=== PATIENT | female | born 1935 | race Two or more races ===

== ENCOUNTER 2019-06-22 12:23 | Emergency (ER) | payer OTHER ==
[2019-06-22 13:01] VITALS: BP 176/73; PULSE 71; TEMP 98.6; BMI 26.4
--- NOTE | 2019-06-22 14:39 | PDOC ---
History of Present Illness - General Chief Complaint: Injury Stated Complaint: SLIP AND FALL Time Seen by Provider: 06/22/19 14:09 History Source: Patient, Family Exam Limitations: Language Barrier (Gib[place], family who is taking care of her translating accurately) - History of Present Illness Initial Comments: 06/22/19 14:34 Holly Ferraro is an 83F with PMH osteoporosis, HTN, NIDDM presenting with witnessed mechanical fall to R side. Patient was walking at 10PM last night, tripped on street and had witnessed mechanical fall to R side. Patient and family who witnessed both deny head injury. Has some residual bruising on both forearms when she caught herself but does not complain of arm, leg or chest pain. No prodromal sx, no LOC/fever/ dizziness. Complains now of pain to her R abdomen from umbilicus to spine, has not taken any medications for it, constant. Denies gross hematuria or issues with urination. No N/V, C/D, chest pain, headache. Medications include metformin for NIDDM, losartan for HTN. Allergy to pencillin , gastric pain when taking high dose AKA, on daily 81mg. Past History - Past Medical History Allergies/Adverse Reactions: Allergies Allergy/AdvReac Type Severity Reaction Status Date / Time Penicillins AdvReac Verified 06/22/19 14:06 Home Medications: Ambulatory Orders Aspirin [Aspirin EC] 81 mg PO DAILY 06/22/19 Cholecalciferol (Vitamin D3) [Vitamin D-400] 400 unit PO DAILY 06/22/19 Losartan Potassium [Cozaar -] 50 mg PO DAILY 06/22/19 Metformin HCl [Glucophage] 1,000 mg PO DAILY 06/22/19 Metformin HCl [Glucophage] 500 mg PO HS 06/22/19 COPD: No Diabetes: Yes HTN: Yes Other medical history: arthritis osteoperosis, bells palsy - Suicide/Smoking/Psychosocial Hx Smoking History: Never smoked Have you smoked in the past 12 months: No Information on smoking cessation initiated: No Hx Alcohol Use: No Drug/Substance Use Hx: No Review of Systems - Review of Systems Able to Perform ROS?: Yes Is the patient limited [place] proficient: No Constitutional: No: Chills, Fever, Weakness HEENTM: No: Symptoms Reported Respiratory: No: Symptoms reported Cardiac (ROS): No: Symptoms Reported ABD/GI: No: Constipated, Diarrhea, Nausea, Vomiting : No: Burning, Dysuria, Discharge, Hematuria Integumentary: Yes: Bruising (bilateral forearms). No: Pallor Neurological: No: Symptoms reported Endocrine: No: Symptoms Reported Hematologic/Lymphatic: No: Symptoms Reported All Other Systems: Reviewed and Negative *Physical Exam - Vital Signs Last Vital Signs Temp Pulse Resp BP Pulse Ox 98.6 F 71 18 176/73 H 95 06/22/19 12:57 06/22/19 12:57 06/22/19 12:57 06/22/19 12:57 06/22/19 12:57 - Physical Exam General Appearance: Yes: Nourished, Appropriately Dressed. No: Apparent Distress HEENT: positive: EOMI, Normal Voice, Symmetrical. negative: Scleral Icterus (R) , Scleral Icterus (L) Neck: positive: Trachea midline, Supple. negative: Lymphadenopathy (R), Lymphadenopathy (L) Respiratory/Chest: positive: Lungs Clear, Normal Breath Sounds. negative: Respiratory Distress, Crackles, Rales, Rhonchi Cardiovascular: positive: Regular Rhythm, Regular Rate. negative: Edema, Murmur Gastrointestinal/Abdominal: positive: Normal Bowel Sounds, Tender (tender to palpation RUQ and RLQ, R paraspinal tenderness, no external bleeding or ecchymosis, no signs of rib fx), Flat, Soft. negative: Organomegaly Musculoskeletal: positive: Other (TTP R flank and paraspinal). negative: Vertebral Tenderness Extremity: positive: Normal Capillary Refill, Normal Inspection, Normal Range of Motion, Pelvis Stable, Other (RLE pain to abdomen on straight leg raise. All extremities: sensation intact to LT, pulses present). negative: Tender Integumentary: positive: Normal Color, Dry, Warm, Bruising (bilateral forearms, non-tender). negative: Jaundice, Pale, Cold, Diaphoresis Neurologic: positive: Fully Oriented, Alert, Normal Mood/Affect, Normal Response , Motor Strength /5 ED Treatment Course - LABORATORY CBC & Chemistry Diagram: 06/22/19 15:25 06/22/19 15:25 Medical Decision Making - Medical Decision Making 06/22/19 14:34 Holly Ferraro is an 83F with PMH osteoporosis, HTN, NIDDM presenting with witnessed mechanical fall to R side. Given patient has witnessed fall without head injury but has persistent pain on R side only, concern for liver lac vs. renal injury vs. spinal injury obstructing nerve root vs. musculoskeletal muscle strain. Will get CMP, CBC, lipase, UA, CXR. Will perform bedside FAST to r/o acute bleed, unlikely given focal R sided tenderness but still considered. 06/22/19 17:00 Bedside FAST negative. IV Tylenol highly effective in improving patient's pain. Pt going for CT at this time. Will re-evaluate after. 06/22/19 19:[address] Sher, discussed dispo plan and ortho f/u. *DC/Admit/Observation/Transfer Diagnosis at time of Disposition: Right sided abdominal pain Fall Qualifiers: Encounter type: initial encounter Qualified Code(s): W19.XXXA - Unspecified fall, initial encounter - Discharge Dispostion Disposition: HOME Condition at time of disposition: Stable - Referrals Referrals: Edilia Stuart MD [Primary Care Provider] - Abner Strong MD [Staff Physician] - - Patient Instructions Printed Discharge Instructions: DI for Low Back Pain, How to Prevent Falls Additional Instructions: Today you were evaluated for R-sided pain after a fall. We obtained a CT scan of your back that shows no bleeding in your abdomen, but you do have fractures of the L1 and L2 transverses processes. You are currently doing well with no deficits at this time, so you are good to go home. Please take Tylenol for pain , since that is what you were given in the ER and worked very well for your pain. Please follow-up with your doctor in the next 3 days for further care. Included is a referral to the orthopedic surgeon Dr. Strong, please see him for follow- up. If you experience uncontrollable pain, become unable to walk, have blood in your urine, begin to have chest pain or shortness of breath, or have any new or concerning symptoms, please return to your closest emergency room immediately. - Post Discharge Activity
[2019-06-22] MEDS ORDERED: ACETAMINOPHEN 1000 MG/100 ML VIAL (NON FORMULARY) IVPB ONE (14:53)
[2019-06-22] MEDS ORDERED: ACETAMINOPHEN INJECTION 100 ML IVPB ONE (15:14)
[2019-06-22 15:40] LABS: BASO % 0.6 % (0-2.0); EOS % 1.7 % (0-4.5); HEMOGLOBIN 13.9 GM/dL (10.7-15.3); LYMPH % 33.2 % (8-40); MCH 29.5 pg (25.7-33.7); MCHC 33.8 g/dl (32.0-36.0); MEAN CELL VOLUME 87.5 fl (80-96); MEAN PLT VOLUME 9.2 fl (7.5-11.1); MONO % 7.9 % (3.8-10.2); NEUT % 56.6 % (42.8-82.8); PLATELET COUNT 215 K/MM3 (134-434); RBC 4.69 M/mm3 (3.60-5.2); RDW 13.2 % (11.6-15.6); WHITE BLOOD COUNT 9.7 K/mm3 (4.0-10.0)
--- NOTE | 2019-06-22 15:58 | PDOC ---
Documentation entered by Emmie Herbert SCRIBE, acting as scribe for Abner Mcfadden MD. Abner Mcfadden MD: This documentation has been prepared by the Piedad obando Nirvannie, SCRIBE, under my direction and personally reviewed by me in its entirety. I confirm that the documentation accurately reflects all work, treatment, procedures, and medical decision making performed by me. Attending Attestation - Resident Resident Name: MameIsmael - ED Attending Attestation I have performed the following: I have examined & evaluated the patient, The case was reviewed & discussed with the resident, I agree w/resident's findings & plan, Exceptions are as noted - HPI HPI: 06/22/19 15:32 The patient is a 83 year old female, with a significant past medical history of osteoporosis, HTN, NIDDM , who presents to the emergency department s/p witnessed fall last night. Pt states that she tripped over a [employer] grate, landing onto her arms and R hip. Pt was able to get up afterwards and has been ambulatory. However, today pt reports worsening pain in her R flank, radiating to her R abdomen. Denies N/V/D. She denies any LOC or head/neck trauma. She denies recent chest pain or shortness of breath. Allergies: Penicillins - Physicial Exam PE: 06/22/19 16:00 "GENERAL: Awake, alert, and fully oriented, in no acute distress. HEAD: No signs of trauma EYES: PERRLA, EOMI, sclera anicteric, conjunctiva clear ENT: Auricles normal inspection, hearing grossly normal, nares patent, oropharynx clear without exudates. Moist mucosa NECK: Nontender, no stepoffs, Normal ROM, supple, no lymphadenopathy, JVD, or masses LUNGS: Breath sounds equal, clear to auscultation bilaterally. No wheezes, and no crackles HEART: Regular rate and rhythm, normal S1 and S2, no murmurs, rubs or gallops ABDOMEN: + R flank tenderness, mild R sided abdominal tenderness, normoactive bowel sounds. No guarding, no rebound. No masses EXTREMITIES: Normal range of motion, no edema. No clubbing or cyanosis. No cords, erythema, or tenderness NEUROLOGICAL: Cranial nerves II through XII intact. 5/5 strength and sensation in all extremities, Normal speech, normal gait, normal cerebellar function SKIN: Warm, Dry, normal turgor, no rashes or lesions noted. BACK: + R paraspinal lumbar TTP, no midline TTP, no stepoffs - Medical Decision Making 06/22/19 16:00 83 F with R flank and R abdominal pain s/p mechanical fall yesterday. FAST negative. Pt with R paraspinal lumbar TTP, no midline tenderness or stepoffs. - CTAP - CT L-spine - Tylenol 06/22/19 19:09 Pt signed out to oncoming attending at 5pm, pending CTs and re-evaluation
[2019-06-22 16:10] LABS: BILIRUBIN,TOTAL 0.4 mg/dL (0.2-1); BLOOD UREA NITROGEN 9.5 mg/dL (7-18); CALCIUM 9.2 mg/dL (8.5-10.1); CREATININE 0.6 mg/dL (0.55-1.3); POTASSIUM 4.3 mmol/L (3.5-5.1); TOT PROT 8.1 g/dl (6.4-8.2)
[2019-06-22 17:09] LABS: URINE APPEARANCE CLEAR; URINE BILIRUBIN NEGATIVE (NEGATIVE); URINE COLOR YELLOW; URINE GLUCOSE (UA) 3+ (NEGATIVE); URINE KETONE NEGATIVE (NEGATIVE); URINE LEUK ESTERASE NEGATIVE (NEGATIVE); URINE NITRITE NEGATIVE (NEGATIVE); URINE PROTEIN NEGATIVE (NEGATIVE); URINE UROBILINOGEN 0.2 mg/dL (0.2-1.0)
--- NOTE | 2019-06-22 19:29 | PDOC ---
*Physical Exam - Vital Signs Last Vital Signs Temp Pulse Resp BP Pulse Ox 98.6 F 71 18 176/73 H 95 06/22/19 12:57 06/22/19 12:57 06/22/19 12:57 06/22/19 12:57 06/22/19 12:57 ED Treatment Course - LABORATORY CBC & Chemistry Diagram: 06/22/19 15:25 06/22/19 15:25 - ADDITIONAL ORDERS Additional order review: Laboratory Results 06/22/19 06/22/19 06/22/19 16:35 15:25 15:25 Sodium 139 Potassium 4.3 Chloride 101 Carbon Dioxide 30 Anion Gap 7 L BUN 9.5 Creatinine 0.6 Est GFR (CKD-EPI)AfAm 99.07 Est GFR (CKD-EPI)NonAf 85.48 Random Glucose 198 H Calcium 9.2 Total Bilirubin 0.4 AST 36 ALT 39 Alkaline Phosphatase 135 H Total Protein 8.1 Albumin 4.0 Lipase 113 Urine Color Yellow Urine Appearance Clear Urine pH 7.0 Ur Specific [place] 1.010 Urine Protein Negative Urine Glucose (UA) 3+ H Urine Ketones Negative Urine Blood Negative Urine Nitrite Negative Urine Bilirubin Negative Urine Urobilinogen 0.2 Ur Leukocyte Esterase Negative 06/22/19 15:25 RBC 4.69 MCV 87.5 MCHC 33.8 RDW 13.2 MPV 9.2 Neutrophils % 56.6 Lymphocytes % 33.2 Monocytes % 7.9 Eosinophils % 1.7 Basophils % 0.6 - Medications Given in the ED: ED Medications Discontinued Medications Generic Name Dose Route Start Last Admin Trade Name Freq PRN Reason Stop Dose Admin Acetaminophen 1,000 mg 06/22/19 14:53 06/22/19 15:33 Ofirmev Injection - IVPB 06/22/19 14:54 1,000 mg ONCE ONE Administration Medical Decision Making - Medical Decision Making 06/22/19 19:27 Sign out received from Dr. Vilchis. 83 y/o F with hx DM, osteoarthritis with witnessed mechanical fall onto arms ( no strike to head or neck) after tripping over [employer] cover last night, with R abdominal and flank pain. CT negative for acute process. Notable for L1, L2 transverse process fractures. No neuro symptoms, ambulating well without pain. 06/22/19 20:[address] Jackson. Given lack of symptoms, no pain, able to ambulate with no neuro symptoms, plan for discharge home with Ortho follow up ( Dr. Strong). *DC/Admit/Observation/Transfer Diagnosis at time of Disposition: Right sided abdominal pain Fall Qualifiers: Encounter type: initial encounter Qualified Code(s): W19.XXXA - Unspecified fall, initial encounter - Discharge Dispostion Disposition: HOME Condition at time of disposition: Stable - Referrals Referrals: Edilia Stuart MD [Primary Care Provider] - Abner Strong MD [Staff Physician] - - Patient Instructions Printed Discharge Instructions: DI for Low Back Pain, How to Prevent Falls Additional Instructions: Today you were evaluated for R-sided pain after a fall. We obtained a CT scan of your back that shows no bleeding in your abdomen, but you do have fractures of the L1 and L2 transverses processes. You are currently doing well with no deficits at this time, so you are good to go home. Please take Tylenol for pain , since that is what you were given in the ER and worked very well for your pain. Please follow-up with your doctor in the next 3 days for further care. Included is a referral to the orthopedic surgeon Dr. Strong, please see him for follow- up. If you experience uncontrollable pain, become unable to walk, have blood in your urine, begin to have chest pain or shortness of breath, or have any new or concerning symptoms, please return to your closest emergency room immediately. - Post Discharge Activity
== END 2019-06-22 20:47 | disposition home or self-care (01) ==
LOC: JER 12:23
PROC: 3E033NZ Introduction of Analgesics, Hypnotics, Sedatives into Peripheral Vein, Percutaneous Approach (ICD-10-PCS; principal; 2019-06-22)
PROC: BW40ZZZ Ultrasonography of Abdomen (ICD-10-PCS; 2019-06-22)
PROC: B246ZZZ Ultrasonography of Right and Left Heart (ICD-10-PCS; 2019-06-22)
DX: R10.9 Unspecified abdominal pain (principal); W18.39XA Other fall on same level, initial encounter; Y93.01 Activity, walking, marching and hiking; Y92.414 Local residential or business street as the place of occurrence of the external cause; Y99.8 Other external cause status; I10 Essential (primary) hypertension; E11.9 Type 2 diabetes mellitus without complications; Z79.84 Long term (current) use of oral hypoglycemic drugs; M19.90 Unspecified osteoarthritis, unspecified site
CPT/HCPCS: 36415; 71045-TC-FY; 72131-TC; 74177-TC; 76705-TC; 80053; 81003; 83690; 85025; 93308; 96374; 99281-25; J0131

== ENCOUNTER 2023-04-23 20:53 | Emergency (ER) | payer OTHER ==
[2023-04-23 21:01] VITALS: BMI 26.4
[2023-04-23 21:45] LABS: BASO % 0.8 % (0-2.0); EOS % 3.2 % (0-4.5); HEMATOCRIT 35.7 % (32.4-45.2); HEMOGLOBIN 11.9 GM/dL (10.7-15.3); LYMPH % 26.6 % (8-40); MCH 28.7 pg (25.7-33.7); MCHC 33.3 g/dl (32.0-36.0); MEAN CELL VOLUME 86.1 fl (80-96); MEAN PLT VOLUME 7.9 fl (7.5-11.1); MONO % 6.5 % (3.8-10.2); NEUT % 62.9 % (42.8-82.8); PLATELET COUNT 344 10^3/uL (134-434); RBC 4.15 M/mm3 (3.60-5.2); RDW 12.9 % (11.6-15.6); WHITE BLOOD COUNT 9.6 K/mm3 (4.0-10.0)
[2023-04-23] MEDS ORDERED: ASPIRIN 81 MG CHEWABLE TABLETS PO ONE (21:53)
[2023-04-23 21:54] LABS: INR 0.98 (0.83-1.09); PROTHROMBIN TIME (PATIENT) 11.4 SEC (9.7-13.0)
[2023-04-23 21:56] LABS: ACTIVATED PTT 30.4 SECONDS (25.2-36.5)
[2023-04-23] MEDS ORDERED: ASPIRIN 81 MG CHEWABLE TABLETS ONE (22:02)
[2023-04-23 22:05] LABS: POTASSIUM 4.5 mmol/L (3.5-5.1)
[2023-04-23 22:07] LABS: CALCIUM 9.3 mg/dL (8.5-10.1)
[2023-04-23 22:08] LABS: ALBUMIN 3.5 g/dl (3.4-5.0)
[2023-04-23 22:09] LABS: BLOOD UREA NITROGEN 9.8 mg/dL (7-18)
[2023-04-23 22:11] LABS: CREATININE 0.7 mg/dL (0.55-1.3)
[2023-04-23 22:12] LABS: TOT PROT 7.7 g/dl (6.4-8.2)
[2023-04-23 22:14] LABS: BILIRUBIN,TOTAL 0.3 mg/dL (0.2-1)
[2023-04-23 23:09] LABS: EPI CELLS 5 /uL (0-25.1); HYALINE CASTS 0 /uL (0-3.1); URINE APPEARANCE CLEAR; URINE BACTERIA 52 /uL (0-1359); URINE BILIRUBIN NEGATIVE (NEGATIVE); URINE COLOR YELLOW; URINE GLUCOSE (UA) 1+ (NEGATIVE); URINE KETONE NEGATIVE (NEGATIVE); URINE LEUK ESTERASE TRACE (NEGATIVE); URINE NITRITE NEGATIVE (NEGATIVE); URINE PROTEIN NEGATIVE (NEGATIVE); URINE RBC 9 /uL (0-23.9); URINE UROBILINOGEN 0.2 mg/dL (0.2-1.0); URINE WBC 16 /uL (0-25.8)
[2023-04-24 00:57] VITALS: BP 166/68; PULSE 54; RESP 16
[2023-04-24 01:54] VITALS: TEMP 98.1
== END 2023-04-24 02:12 | disposition short-term general hospital (02) ==
LOC: JER 20:53
DX: R53.1 Weakness (principal); R20.0 Anesthesia of skin; R47.81 Slurred speech
CPT/HCPCS: 0241U-QW; 36415; 70450-TC; 70496-TC; 70498-TC; 80053; 80061; 81003; 82550; 82962; 83036; 84484; 85025; 85610; 85730; 86850; 86900; 86901; 93005; 93010; 99291

== ENCOUNTER 2023-10-27 09:55 | Emergency (ER) | payer OTHER ==
[2023-10-27 10:00] VITALS: BP 109/61; PULSE 71; RESP 18; TEMP 98.3; BMI 24.3
[2023-10-27] MEDS ORDERED: ACETAMINOPHEN 500 MG TABLET (FP) PO ONE (14:31)
[2023-10-27] MEDS ORDERED: ACETAMINOPHEN 325 MG TABLET (FP) ONE (14:50)
[2023-10-27] MEDS ORDERED: ACETAMINOPHEN 325 MG TABLET (FP) PO ONE (14:53)
== END 2023-10-27 15:15 | disposition home or self-care (01) ==
LOC: JERFT 09:55
PROC: 2W3EX1Z Immobilization of Right Hand using Splint (ICD-10-PCS; principal; 2023-10-27)
DX: S42.354A Nondisplaced comminuted fracture of shaft of humerus, right arm, initial encounter for closed fracture (principal); M25.511 Pain in right shoulder; W07.XXXA Fall from chair, initial encounter
CPT/HCPCS: 73030-TC-RT-FY; 73060-TC-RT-FY; 99283-25